=== PATIENT | male | born 1985 ===

== ENCOUNTER 2016-12-24 01:48 | Emergency (ER) | payer SELFPAY ==
[2016-12-24 02:12] VITALS: TEMP 98.2; O2SAT 98
[2016-12-24 02:57] VITALS: BP 111/63; PULSE 83; RESP 17
== END 2016-12-24 06:05 | disposition home or self-care (01) ==
LOC: H.ER 01:48
DX: F10.10 Alcohol abuse, uncomplicated (principal)